=== PATIENT | female | born 1940 | race Caucasian/White ===

== ENCOUNTER 2024-12-20 10:23 | Emergency (ER) | payer OTHER, SELFPAY ==
[2024-12-20 10:25] VITALS: BP 191/149; BP 200/69
[2024-12-20 10:27] VITALS: BP 200/69
[2024-12-20] MEDS: DELTASONE 40 MG PO (10:59)
[2024-12-20 11:00] VITALS: BP 181/69
[2024-12-20] MEDS: TORADOL 30 MG IM (11:00)
--- NOTE | 2024-12-20 11:29 | ED.GENMED ---
History of Present Illness
General
Chief Complaint: Back Pain
Time Seen by Provider: 12/20/24 10:34
History of Present Illness
History of Present Illness:
84-year-old female presents to the emergency department for evaluation of mid low back pain for the past 4 days. Pain seems to improve whenever she is at rest however worsens when she attempts to get up when she ambulates. She has radiation of
pain into bilateral thighs but denies any other lower extremity paresthesias, no loss of bladder or bowel function. She has a known history of lumbar spinal stenosis and previously was managed by spine/through [facility] many years
ago. She does not take routine pain medications. No recent fevers or chills. Denies any anterior abdominal pain
Past History
Past History
ED Past Medical History: HTN, Hypothyroidism and Other (Migraine history)
ED Past Surgical History: Other (Noncontributory)
Social History
Tobacco: Non-smoker
Alcohol: None
Drug: None
Personal:
Living: with family
Employment: Retired
Family History
Family History: Other (Noncontributory)
Review of Systems
Review of Systems
Allergies reviewed?: Yes
All Other Systems: ROS reviewed and negative except as documented in HPI and ROS
Phy Exam
Physical Exam
Physical Exam:
GEN: Well appearing, NAD, WDWN
HEENT: Oral mucosa moist, no scleral icterus
Cardiac: Regular rate
Lung: No respiratory distress, no tachypnea
Abdomen: Soft, grossly nontender
MSK: No gross deformity or injuries. No midline lumbar spine or spinous muscle tenderness
Skin: Good color, no pallor or jaundice, no rashes
Neuro: AO x3, moves all extremities freely, lower extremity strength is 5 out of 5 in all diaz with intact sensation
Psych: Calm, cooperative
Course
Orders/Labs/Results
Orders:
Orders
12/20/24 10:55
Acetaminophen [Tylenol] 650 mg PO NOW STA
Ketorolac [Toradol] 30 mg IM NOW STA
Prednisone [Deltasone] 40 mg PO NOW STA
12/20/24 12:08
Urinalysis Reflex To Culture Urgent
Date Specimen was Collected: 12/20/24
Time Specimen was Collected: 12:05
Urine Microscopic Reflex Cult Urgent
Urine Culture Urgent
KEKE Source: U
Specimen Description:
Date Specimen was Collected: 12/20/24
Time Specimen was Collected: 12:05
Abnormal Lab Results
12/20/24
12:08
Urine Ketones 1+ A
(Negative)
Leukocyte Esterase Rfl 1+ A
(Negative)
Urine Albumin (Reflex) 1+ A
(Neg - Trace)
Vital Signs
Initial and Last Documented VS:
Initial Vital Signs
Temp Pulse Resp BP Pulse Ox
98 F 72 16 200/69 98
12/20/24 10:25 12/20/24 10:25 12/20/24 10:25 12/20/24 10:25 12/20/24 10:25
Last Documented Vital Signs
Temp Pulse Resp BP Pulse Ox
98 F 72 16 154/60 98
12/20/24 10:25 12/20/24 10:25 12/20/24 10:25 12/20/24 12:07 12/20/24 12:30
MDM/Problems Addressed
MDM/Problems Addressed:
Patient was treated with NSAIDs with good clinical control, ambulating around in the ED. She has no clinical signs of cauda equina or emergent spinal compression. Will treat with a brief course of corticosteroids and provide NSAIDs for relief
thereafter, encouraged her to follow-up with outpatient pain and spine
*Pulse Oximetry
SaO2: 96
Oxygen Mode of Delivery: Room air
Patient hypoxic: no
*Critical Care Note
Total Time (30-74mins, 75-104mins- exclusive of procedures): Not Applicable
ED Attending Note
-
Portions of this chart may have been created with voice recognition software.� Occasional wrong word or��sound alike� substitutions may have occurred due to the inherent limitations of voice recognition software.
Discharge Plan
Departure
Patient Disposition: Home (Routine Discharge)
Date of Disposition: 12/20/24
Time of Disposition: 12:32
Patient with high blood pressure during this ER visit?: No
Discharge Problem:
Lumbar spinal stenosis
Instructions: Low Back Pain (DC)
Prescriptions:
New
methylprednisolone [Medrol (Javi)] 4 mg tablets,dose pack
See Rx Instructions .ROUTE .COMPLEX Qty: 21 0RF
Rx Instructions:
orally per package directions
celecoxib [Celebrex] 100 mg capsule
100 mg PO BID 7 Days Qty: 14 0RF
Rx Instructions:
To start on 12/27/2024
No Action
fexofenadine 60 MG tablet
60 mg PO DAILY
lovastatin 10 MG tablet
10 mg PO DAILY
aspirin 81 MG tablet,delayed release (DR/EC)
81 mg PO DAILY
levothyroxine 88 MCG tablet
88 mcg PO DAILY
diphenhydramine HCl [Benadryl] 25 MG capsule
25 mg PO HS
ibuprofen [Motrin IB] 200 MG tablet
200 mg PO PRN PRN (Reason: pain)
propranolol 120 MG capsule,extended release 24 hr
120 mg PO DAILY
polyethylene glycol 3350 [Miralax] 119 GM powder
1 PO DAILY
Patient Comments:
does not know exact dose states she takes a cap ful daily
diazepam 5 MG tablet
5 mg PO PRN PRN (Reason: anxiety)
folic acid-vit B6-vit B12 [Folbic] 1 EACH tablet
1 tab PO DAILY
metronidazole-skin cleanser [Metrogel Kit] 1 EACH combo pack
1 kit topical DAILY
calcium-vitamin D3-vitamin K 1 EACH tablet
1 ea PO DAILY
Referrals:
UNKNOWN - PT DOES,NOT KNOW [Unknown Provider]
Activity Restrictions/Additional Instructions:
Begin Medrol Javi (methylprednisolone) tomorrow, 12/21/2024
Do not begin celecoxib until 12/27/2024
Follow up with your primary doctor and/or spine/pain doctor
Interventions
Interventions:
*Risk Screen - Suicide Last Done: 12/20/24 10:25
*General Assessment Last Done: 12/20/24 10:25
*Neglect/Abuse Screening Last Done: 12/20/24 10:25
*ED- Fall Risk Assessment Last Done: 12/20/24 10:31
*ED COVID-19 Vaccine History Last Done: 12/20/24 10:31
*ED Influenza Vaccine History Last Done: 12/20/24 10:31
*Nursing Disposition Last Done: 12/20/24 13:05
ED-Musculoskeletal Assessment Last Done: 12/20/24 10:30
Discharge Date and Time
Discharge Date/Time: 12/20/24 13:05
Print Language: GUATEMALAN
[2024-12-20 12:07] VITALS: BP 154/60
[2024-12-20 12:16] LABS: Urine Character Clear (Clear)
[2024-12-20 12:49] LABS: Urine Squamous Cell 0-2 /LPF (Few)
[2024-12-20 12:52] LABS: Urine Red Blood Cell 0-2 /HPF (0-2)
== END 2024-12-20 13:05 | disposition home or self-care (01) ==
LOC: EMR 10:23
PROVIDERS: Physician Assistant; EMERGENCY PHYSICIAN Emergency Medicine; FAMILY PHYSICIAN Family Medicine
DX: M48.061 Spinal stenosis, lumbar region without neurogenic claudication (principal); I10 Essential (primary) hypertension; E03.9 Hypothyroidism, unspecified; Z79.82 Long term (current) use of aspirin
CPT/HCPCS: 99284; 96372; 81003; 81015; 87086

== ENCOUNTER → 2025-01-14 09:50 | Outpatient (REF) | payer OTHER, SELFPAY | LOC: RAD 09:50 | PROVIDERS: ATTENDING PHYSICIAN Family Medicine | DX: M54.16 Radiculopathy, lumbar region (principal) | CPT/HCPCS: 72072; 72110 ==